=== PATIENT | female | born 1985 | race Two or more races ===

== ENCOUNTER 2022-06-17 21:36 | Emergency (ER) | payer SELFPAY ==
[~2022-06-17] VITALS: Ht 152.4 cm; Wt 119.5 kg
[2022-06-17 21:56] VITALS: BP 119/54
[2022-06-17] MEDS ORDERED: diphenhdrAMINE HCL 25 MG CAP PO ONE (22:00)
== END 2022-06-18 02:38 | disposition left against medical advice (07) ==
LOC: ER 21:36
DX: T78.49XA Other allergy, initial encounter (principal); L50.9 Urticaria, unspecified; Z53.21 Procedure and treatment not carried out due to patient leaving prior to being seen by health care provider; X58.XXXA Exposure to other specified factors, initial encounter